=== PATIENT | female | born 1960 | race Caucasian/White ===

== ENCOUNTER → 2017-10-04 | Outpatient (CLI) | payer OTHER ==
[2017-10-04 12:26] LABS: BASO # 0.1 10^3/uL (0.0-0.2); BASO % 1.3 % (0.0-1.0); EOS # 0.6 10^3/uL (0.0-0.50); EOS % 13.4 % (0.0-3.0); HEMOGLOBIN 13.4 g/dl (12.0-15.5); IMMATURE GRANULOCYTE % 0.2 % (0-3.0); LYMPH # 1.5 10^3/uL (1.5-4.5); LYMPH % 32.6 % (24.0-44.0); MEAN CORPUSCULAR HEMOGLOBIN 31.2 pg (27.0-33.0); MEAN CORPUSCULAR HGB CONC 32.7 g/dl (32.0-36.5); MEAN CORPUSCULAR VOLUME 95.3 fl (80.0-96.0); MONO # 0.3 10^3/uL (0.0-0.8); MONO % 6.7 % (0.0-5.0); NEUTROPHILS # 2.1 10^3/uL (1.8-7.7); NEUTROPHILS % 45.8 % (36.0-66.0); PLATELET COUNT, AUTOMATED 259 10^3/uL (150-450); RED CELL DISTRIBUTION WIDTH 13.2 % (11.5-14.5); WHITE BLOOD COUNT 4.6 10^3/uL (4.0-10.0)
[2017-10-04 12:29] LABS: APPEARANCE, URINE CLEAR (CLEAR); BACTERIA, URINE AUTO NEGATIVE (NEGATIVE); BILIRUBIN, URINE AUTO NEGATIVE (NEGATIVE); BLOOD, URINE BLOOD NEGATIVE (NEGATIVE); COLOR, URINE YELLOW (YELLOW); GLUCOSE, URINE (UA) AUTO NEGATIVE (NEGATIVE); KETONE, URINE AUTO NEGATIVE (NEGATIVE); LEUKOCYTE ESTERASE, URINE AUTO NEGATIVE (NEGATIVE); NITRITE, URINE AUTO NEGATIVE (NEGATIVE); PROTEIN, URINE AUTO NEGATIVE (NEGATIVE); RBC, URINE AUTO 0 /HPF (0-3); SQUAMOUS EPITHELIAL CELL UR AU 0 /HPF (0-6); UROBILINOGEN, URINE AUTO 0.2 mg/dL (0.0-2.0); WBC, URINE AUTO 0 /HPF (0-3)
[2017-10-04 13:36] LABS: ALBUMIN 3.9 GM/DL (3.2-5.2); ALBUMIN/GLOBULIN RATIO 1.39 (1.00-1.93); ALKALINE PHOSPHATASE 99 U/L (45-117); ALT/SGPT 16 U/L (12-78); ANION GAP 7 MEQ/L (8-16); AST/SGOT 14 U/L (7-37); BILIRUBIN,TOTAL 0.5 MG/DL (0.2-1.0); BLOOD UREA NITROGEN 10 MG/DL (7-18); CARBON DIOXIDE LEVEL 25 MEQ/L (21-32); CHLORIDE LEVEL 112 MEQ/L (98-107); CREATININE FOR GFR 1.08 MG/DL (0.55-1.30); GLOMERULAR FILTRATION RATE 56.1 (>51); GLUCOSE, FASTING 90 MG/DL (70-100); POTASSIUM SERUM 4.5 MEQ/L (3.5-5.1); SODIUM LEVEL 144 MEQ/L (136-145); TOTAL PROTEIN 6.7 GM/DL (6.4-8.2)
[2017-10-04 13:39] LABS: COMPLEMENT C3 98.9 MG/DL (90-180); COMPLEMENT C4 24.3 MG/DL (10-40)
[2017-10-06 00:10] LABS: ANTI DOUBLE STRAND-DNA AB <1 IU/mL (0-9)
== END ==
LOC: M WUC 08:44
DX: L93.0 Discoid lupus erythematosus (principal)

== ENCOUNTER → 2022-09-15 | Outpatient (CLI) | payer OTHER | LOC: M PLAIMG 07:21 | PROVIDERS: ATTEND Physician Assistant | DX: M51.16 Intervertebral disc disorders with radiculopathy, lumbar region (principal) ==

== ENCOUNTER → 2024-01-18 | Outpatient (CLI) | payer OTHER ==
[2024-01-18 17:49] LABS: FERRITIN 95.4 NG/ML (7.3-270.7); PERCENT SATURATION 41.9 % (13.2-45.0); TOTAL IRON BINDING CAPACITY 272 UG/DL (250-425)
[2024-01-18 17:51] LABS: VITAMIN B12 LEVEL 399 PG/ML (211-911)
[2024-01-18 17:53] LABS: FOLATE > 24.0 NG/ML (>5.4)
[2024-01-19 08:26] LABS: IRON (FE) 114 UG/DL (50-170)
== END ==
LOC: M WUC 10:36
PROVIDERS: ATTEND Physician Assistant
DX: D50.9 Iron deficiency anemia, unspecified (principal); E03.9 Hypothyroidism, unspecified; D51.9 Vitamin B12 deficiency anemia, unspecified

== ENCOUNTER → 2024-07-10 | Outpatient (CLI) | payer OTHER ==
[2024-07-10 13:40] LABS: HEMATOCRIT 40.6 % (36.0-47.0); HEMOGLOBIN 12.8 g/dl (12.0-15.5); MEAN CORPUSCULAR HEMOGLOBIN 30.7 pg (27.0-33.0); MEAN CORPUSCULAR HGB CONC 31.5 g/dl (32.0-36.5); MEAN CORPUSCULAR VOLUME 97.4 fl (80.0-96.0); PLATELET COUNT, AUTOMATED 379 10^3/uL (150-450); RED BLOOD COUNT 4.17 10^6/uL (4.00-5.40)
[2024-07-10 13:49] LABS: ALKALINE PHOSPHATASE 97 U/L (35-104); ALT/SGPT 12 U/L (7.0-40); AST/SGOT 13 U/L (<34); BILIRUBIN,TOTAL 0.4 MG/DL (0.3-1.2); BLOOD UREA NITROGEN 21 MG/DL (9-23); CALCIUM LEVEL 9.7 MG/DL (8.3-10.6); CARBON DIOXIDE LEVEL 24 MMOL/L (20-31); CHLORIDE LEVEL 108 MMOL/L (98-107); CREATININE FOR GFR 1.35 MG/DL (0.55-1.30); GLOMERULAR FILTRATION RATE 42.3 (>45); GLUCOSE, FASTING 97 MG/DL (74-106); SODIUM LEVEL 144 MMOL/L (136-145); TOTAL PROTEIN 6.9 G/DL (5.7-8.2)
[2024-07-10 13:52] LABS: THYROID STIMULATING HORMONE < 0.010 uIU/ML (0.55-4.78)
[2024-07-11 06:49] LABS: WHITE BLOOD COUNT 7.2 10^3/uL (4.0-10.0)
== END ==
LOC: M WUC 10:01
PROVIDERS: ATTEND Physician Assistant
DX: D64.9 Anemia, unspecified (principal); E03.9 Hypothyroidism, unspecified; I10 Essential (primary) hypertension

== ENCOUNTER → 2024-07-31 | Outpatient (CLI) | payer OTHER | LOC: M RAD 16:16 | PROVIDERS: ATTEND Physician Assistant | DX: E07.9 Disorder of thyroid, unspecified (principal) ==

== ENCOUNTER → 2024-08-16 | Outpatient (CLI) | payer OTHER | LOC: M WUC 13:36 | PROVIDERS: ATTEND Physician Assistant | DX: J15.9 Unspecified bacterial pneumonia (principal) ==

== ENCOUNTER → 2025-01-04 | Outpatient (CLI) | payer OTHER ==
[2025-01-04 13:40] LABS: FREE T4 0.91 NG/DL (0.89-1.76)
== END ==
LOC: M WUC 10:43
DX: E03.9 Hypothyroidism, unspecified (principal)

== ENCOUNTER → 2025-02-26 | Outpatient (CLI) | payer OTHER ==
[2025-02-26 13:28] LABS: FREE T4 1.37 NG/DL (0.89-1.76)
== END ==
LOC: M WUC 10:45
DX: E03.9 Hypothyroidism, unspecified (principal)